=== PATIENT | female | born 1965 | race Caucasian/White ===

== ENCOUNTER 2017-08-12 22:59 | Emergency (ER) | payer OTHER ==
[~2017-08-12] VITALS: Ht 160 cm; Wt 64.9 kg
[~2017-08-12 22:59] MED LIST: ALBUAER3 IN; BECL80AE9 IN; HYDR12.56 PO; LISI10TA6 PO
[2017-08-13 01:23] VITALS: BP 156/97
[2017-08-13] MEDS ORDERED: BACITRACIN-POLYMYXIN B TOPICAL OINT UD TOP ONE (01:40)
[2017-08-13] MEDS ORDERED: BACITRACIN TOP OINT 1 UD PKG TOP ONE (01:45)
[2017-08-13] MEDS ORDERED: LIDOCAINE 1% HCL (LOCAL ANESTH.) INJ 20ML MDV ONE (01:52)
[2017-08-13] MEDS ORDERED: cefTRIAXone SOD 1,000 MG VL ONE (01:54)
[2017-08-13] MEDS ORDERED: cefTRIAXone SOD 1,000 MG VL IM ONE (02:00)
== END 2017-08-13 00:51 | disposition home or self-care (01) ==
LOC: ER 23:02
DX: T81.89XD Other complications of procedures, not elsewhere classified, subsequent encounter (principal); Z48.02 Encounter for removal of sutures; I10 Essential (primary) hypertension; J45.909 Unspecified asthma, uncomplicated; Z98.51 Tubal ligation status; Z88.6 Allergy status to analgesic agent; Z91.012 Allergy to eggs; Z91.040 Latex allergy status; Z91.09 Other allergy status, other than to drugs and biological substances; Z90.49 Acquired absence of other specified parts of digestive tract
CPT/HCPCS: 99283; J0696; J2001

== ENCOUNTER 2018-07-01 19:10 | Emergency (ER) | payer OTHER ==
[~2018-07-01] VITALS: Ht 160 cm; Wt 63.5 kg
[2018-07-01 19:25] VITALS: BP 152/97
[2018-07-01] MEDS ORDERED: MEPERIDINE HCL (50 MG/ML) 1 ML VIAL IM ONE (21:45)
== END 2018-07-02 00:39 | disposition home or self-care (01) ==
LOC: ER 19:12
DX: S63.502A Unspecified sprain of left wrist, initial encounter (principal); J45.909 Unspecified asthma, uncomplicated; I10 Essential (primary) hypertension; Z88.5 Allergy status to narcotic agent; Z88.8 Allergy status to other drugs, medicaments and biological substances; Z79.899 Other long term (current) drug therapy; W18.39XA Other fall on same level, initial encounter; Y93.89 Activity, other specified; Y99.8 Other external cause status; Y92.89 Other specified places as the place of occurrence of the external cause
CPT/HCPCS: 73060; 73080; 73090; 73110; 73130; 96372; 99284; J2175

== ENCOUNTER 2018-08-17 23:57 | Emergency (ER) | payer MEDICAID, OTHER ==
[~2018-08-17] VITALS: Ht 160 cm; Wt 61.2 kg
[2018-08-18 00:23] VITALS: BP 165/92
[2018-08-18] MEDS ORDERED: methylPREDNISolone SOD SUCC 125 MG/2 ML VL IM ONE (03:30)
[2018-08-18] MEDS ORDERED: KETOROLAC TROMETH 60MG/2ML VIAL IM ONE (03:30)
== END 2018-08-18 04:17 | disposition home or self-care (01) ==
LOC: ER 23:58
DX: S63.502A Unspecified sprain of left wrist, initial encounter (principal); J45.909 Unspecified asthma, uncomplicated; I10 Essential (primary) hypertension; F12.10 Cannabis abuse, uncomplicated; Z98.51 Tubal ligation status; Z88.1 Allergy status to other antibiotic agents; Z91.012 Allergy to eggs; Z91.040 Latex allergy status; W01.0XXA Fall on same level from slipping, tripping and stumbling without subsequent striking against object, initial encounter; Y93.89 Activity, other specified; Y92.098 Other place in other non-institutional residence as the place of occurrence of the external cause; Y99.8 Other external cause status
CPT/HCPCS: 29125; 73110; 96372; 99283; J1885; J2930

== ENCOUNTER 2018-08-19 17:20 | Emergency (ER) | payer OTHER ==
[~2018-08-19] VITALS: Ht 167.6 cm; Wt 72.6 kg
[2018-08-19] MEDS ORDERED: NEOMYCIN-BACITRACIN-POLYM UNITDOSE PKG TOP OINT TOP ONE (18:30)
[2018-08-19] MEDS ORDERED: LIDOCAINE 1% (LOCAL ANESTH.) PF 5ml SDV ID ONE (18:30)
[2018-08-19 20:03] VITALS: BP 145/102
== END 2018-08-19 19:41 | disposition home or self-care (01) ==
LOC: EDBD 17:20 → ER 17:20 → EEVIPCON 17:20 → ER 19:41
DX: S01.81XA Laceration without foreign body of other part of head, initial encounter (principal); S50.12XA Contusion of left forearm, initial encounter; J45.909 Unspecified asthma, uncomplicated; I10 Essential (primary) hypertension; F12.90 Cannabis use, unspecified, uncomplicated; Z88.5 Allergy status to narcotic agent; Z88.8 Allergy status to other drugs, medicaments and biological substances; Z88.6 Allergy status to analgesic agent; Z98.51 Tubal ligation status; Z91.012 Allergy to eggs; Z91.040 Latex allergy status; Y08.89XA Assault by other specified means, initial encounter; X58.XXXA Exposure to other specified factors, initial encounter; Y93.89 Activity, other specified; Y99.8 Other external cause status; Y92.89 Other specified places as the place of occurrence of the external cause
CPT/HCPCS: 12013; 70450; 72125; 73200